=== PATIENT | male | born 1965 | race American Indian/Alaskan Native ===

== ENCOUNTER 2017-12-24 11:50 | Emergency (ER) | payer OTHER ==
[2017-12-24 11:56] VITALS: BP 148/85
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
== END 2017-12-24 14:06 | disposition home or self-care (01) ==
LOC: ED 11:50
DX: S16.1XXA Strain of muscle, fascia and tendon at neck level, initial encounter (principal); S29.011A Strain of muscle and tendon of front wall of thorax, initial encounter; S29.012A Strain of muscle and tendon of back wall of thorax, initial encounter; V49.49XA Driver injured in collision with other motor vehicles in traffic accident, initial encounter; Y93.89 Activity, other specified; Y92.89 Other specified places as the place of occurrence of the external cause; Y99.8 Other external cause status
CPT/HCPCS: 99282

== ENCOUNTER 2018-06-15 12:47 | Emergency (ER) | payer SELFPAY ==
[2018-06-15 12:55] VITALS: BP 168/92
[2018-06-15] MEDS ORDERED: NORCO 5/325 PO ONE (14:56)
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
--- NOTE | 2018-06-15 16:37 | XRay Report ---
FINAL REPORT EXAM: XR KNEE 3V RT HISTORY: right knee pain TECHNIQUE: 3 views of the right knee PRIORS: None. FINDINGS: There is no radiographic evidence of definite acute fracture or dislocation. No definite misalignment. No evidence of osseous lesion. Joint spaces are maintained. No evidence of synovial joint effusion. There is no evidence of significant arthrosis. IMPRESSION: No acute skeletal pathology
--- NOTE | 2018-06-15 16:39 | XRay Report ---
FINAL REPORT EXAM: XR HIP 2-3V RT HISTORY: right hip pain TECHNIQUE: One view of the pelvis One view of the right hip PRIORS: None. FINDINGS: Nonspecific slight subarticular sclerosis at both SI joints and both hip joints. No evidence of acute fracture or dislocation in the pelvis and right hip. Slight lateral right hip joint space narrowing no osseous erosive change or significant bone spurring. IMPRESSION: No acute fracture or dislocation Multifocal slight subarticular sclerosis suggestive of degenerative change. Differential includes mild bilateral sacroiliitis in the appropriate clinical setting
--- NOTE | 2018-06-15 18:36 | XRay Report ---
FINAL REPORT EXAM: XR RIBS UNI W PA CHEST 3+V RT HISTORY: right rib pain TECHNIQUE: Frontal view of the chest Right rib examination PRIORS: None. FINDINGS: There is no evidence of acute displaced rib fracture. The ribs are partly obscured by superimposed anatomy. There is no pneumothorax, pulmonary consolidation to suggest contusion, or pleural effusion in the visualized chest. IMPRESSION: No radiographic evidence of visible acute displaced rib fracture
== END 2018-06-15 18:26 ==
LOC: ED 12:47
DX: M54.5 Low back pain (principal); M25.551 Pain in right hip; M25.561 Pain in right knee
CPT/HCPCS: 99283